=== PATIENT | male | born 1990 | race Hispanic/Latino ===

== ENCOUNTER 2023-03-27 21:01 | Emergency (ER) | payer SELFPAY ==
[2023-03-27] MEDS ORDERED: Lidocaine 1% PF 5 ML VIAL ONE (22:23)
[2023-03-27] MEDS ORDERED: Boostrix 0.5 ML (Tdap) VIAL (>/=7 yrs of age) ONE (22:24)
== END 2023-03-27 23:41 | disposition home or self-care (01) ==
LOC: ERS 21:01
DX: S81.811A Laceration without foreign body, right lower leg, initial encounter (principal); W26.9XXA Contact with unspecified sharp object(s), initial encounter; Z23 Encounter for immunization
CPT/HCPCS: 12002; 90471; 90715